=== PATIENT | female | born 1980 | race Caucasian/White ===

== ENCOUNTER 2022-04-05 09:37 | Emergency (ER) | payer MEDICAID ==
[~2022-04-05] VITALS: Ht 167.6 cm; Wt 115.2 kg
[2022-04-05] MEDS ORDERED: CARBAMAZEPINE 200 MG TABLET PO ONE (10:00)
[2022-04-05] MEDS ORDERED: CARBAMAZEPINE 200 MG TABLET ONE (10:04)
[2022-04-05] MEDS ORDERED: CARB200T PO (10:05)
--- NOTE | 2022-04-05 10:11 | NUR ---
TEGRETOL PO ADMINISTERED INDICATED, DAGMAR WELL.
[2022-04-05 10:20] VITALS: BP 128/72
--- NOTE | 2022-04-05 10:25 | NUR ---
Patient discharged to home in stable condition. Written and verbal after care instructions given. Patient verbalizes understanding of instruction.
== END 2022-04-05 10:25 | disposition home or self-care (01) ==
LOC: ER 09:42
DX: G50.0 Trigeminal neuralgia (principal); J45.909 Unspecified asthma, uncomplicated; Z79.899 Other long term (current) drug therapy

== ENCOUNTER 2022-05-11 19:12 | Emergency (ER) | payer MEDICAID ==
[~2022-05-11] VITALS: Ht 165.1 cm; Wt 110.7 kg
[~2022-05-11 19:12] MED LIST: CARB200T PO
--- NOTE | 2022-05-11 19:30 | NUR ---
BIBS C/O SOB, RUNNY NOSE, X 3 DAYS. AMBULATORY, PLACED ON BED, BREATHING EVEN AND UNLABORED SATURATING AT 98%RA.
--- NOTE | 2022-05-11 20:46 | NUR ---
SWAB FOR COVID19, RAPID INFLIENZA ANTIGEN AND URINE SAMPLE SENT TO LAB
[2022-05-11] MEDS ORDERED: PRED20TA PO (20:59)
[2022-05-11] MEDS ORDERED: ALBU2.5V13 NEB (20:59)
[2022-05-11] MEDS ORDERED: NEBU-248 MC (20:59)
[2022-05-11] MEDS ORDERED: LORA10TA68 PO (20:59)
[2022-05-11] MEDS ORDERED: ALBU18HF2 INH (20:59)
[2022-05-11] MEDS ORDERED: IBUP-1953 PO (21:01)
--- NOTE | 2022-05-11 21:28 | NUR ---
Patient discharged to home in stable condition. Written and verbal after care instructions given. Patient verbalizes understanding of instruction.
[2022-05-11 21:30] VITALS: BP 120/75
== END 2022-05-11 21:28 | disposition home or self-care (01) ==
LOC: ER 19:15
DX: J06.9 Acute upper respiratory infection, unspecified (principal); B97.89 Other viral agents as the cause of diseases classified elsewhere; Z20.822 Contact with and (suspected) exposure to COVID-19; J45.909 Unspecified asthma, uncomplicated; G50.0 Trigeminal neuralgia; Z79.899 Other long term (current) drug therapy
CPT/HCPCS: 99283; 87426; 87804; 84703; C9803